=== PATIENT | female | born 1965 | race Caucasian/White ===

== ENCOUNTER → 2017-03-10 | Outpatient (CLI) | payer OTHER | END | disposition home or self-care (01) | LOC: LAB 17:41 | PROVIDERS: ATTEND Physician Assistant | DX: M85.89 Other specified disorders of bone density and structure, multiple sites (principal) ==

== ENCOUNTER → 2018-01-30 | Outpatient (CLI) | payer OTHER ==
--- NOTE | 2018-01-31 17:48 | MRI ---
EXAM DESCRIPTION: Ankle,Right: MRI. CLINICAL HISTORY: PARTIAL ACHILLES TENDON TEAR COMPARISON: None. TECHNIQUE: Multiplanar, high-field MRI, multiple sequences, without contrast: Right ankle. FINDINGS: Normal signal in the Achilles tendon. Minimal edema in the fascia anterior to the tendon and inferior to the musculotendinous junction. Normal marrow signal at the tendon insertion on the calcaneus. Normal signal in the flexor tendons and the tarsal tunnel with no soft tissue mass or fluid. Minimal edema in the subcutaneous adipose tissue outside the flexor retinaculum abutting the tendons. Normal signal in the peroneus tendons. Normal signal in the anterior extensor tendons. Minimal thickening of the plantar fascia at the origin from the proximal plantar calcaneus. Trace soft tissue edema inferior to the proximal fascia. Minimal effusion in the lateral gutter of the ankle mortise. The ankle mortise is congruent. No osteochondral lesions. No effusion in the subtalar joints and no osteochondral lesions. Medial and lateral stabilizing ligaments are intact. Sinus Tarsi ligaments are unremarkable. No abnormal marrow signal. IMPRESSION: 1. Normal signal in the Achilles tendon. Soft tissue edema in the fascia anterior to the musculotendinous junction. Normal signal in the calcaneal insertion of the tendon. 2. Minimal thickening of the plantar fascia at the origin and trace amount of edema underneath the fascia could indicate early plantar fasciitis. 3. Minimal effusion in the lateral gutter of the ankle mortise. No osteochondral lesions. Ligaments are intact. Normal signal in the remaining tendons. Electronically signed by: Elmer Rey MD 01/31/2018 5:47 PM JAVASCRIPT APPLICATION DEVELOPER Workstation: [id number]
== END ==
LOC: MRI 08:51
PROVIDERS: ATTEND Podiatrist Foot & Ankle Surgery
DX: S86.011A Strain of right Achilles tendon, initial encounter (principal)

== ENCOUNTER → 2018-02-07 | Outpatient (CLI) | payer OTHER | LOC: GMAJS 13:37 | PROVIDERS: ATTEND Physician Assistant | DX: N39.0 Urinary tract infection, site not specified (principal) ==

== ENCOUNTER → 2018-04-14 | Outpatient (CLI) | payer OTHER | LOC: GMAJ 17:17 | PROVIDERS: ATTEND Family Medicine | DX: Z00.00 Encounter for general adult medical examination without abnormal findings (principal) ==

== ENCOUNTER → 2018-05-21 | Outpatient (CLI) | payer OTHER ==
--- NOTE | 2018-05-21 16:59 | US ---
THYROID ULTRASOUND CLINICAL INFORMATION: R 22.1. Localized swelling, mass and lump, neck. TECHNIQUE: Routine transcutaneous scannin-D and Doppler modes. COMPARISON: No prior thyroid ultrasound. Patient also had digital screening bilateral mammography examination today. FINDINGS: Thyroid size: Right 3.3 x 1.3 x 1.3 cm. Left 3.4 x 1.7 x 1.3 cm. Isthmus 2.3 mm thickness. Texture: Heterogeneous Estimated total number of nodules >/=1 cm: 0 Number of spongiform nodules >/=2 cm not described below (TR1): 0 Number of mixed cystic and solid nodules >/=1.5 cm not described below (TR2): 0 Nodule #: 1 Maximum size: 0.7 cm; All dimensions 0.5 x 0.5 cm Location: right; upper Composition: solid/almost completely solid (2) Echogenicity: hypoechoic (2) Shape: not [id number] (0) Margins: smooth (0) Echogenic foci: none (0) ACR TI-RADS total points: 4. ACR TI-RADS risk category: TR4 (4-6 points) ACR TI-RADS recommendation: No further follow-up In the soft tissues adjacent to the thyroid, no distinct solid mass or cyst. No large calcifications or parenchymal edema. No abnormal vascularity. No overlying skin changes. IMPRESSION: 1. 7 mm solid nodule in the right lobe is ACR TI RADS risk category TR 4. Because largest diameter is less than 1 cm, no ultrasound follow-up is recommended. Please see below.* 2. Soft tissue surrounding the thyroid gland is unremarkable. *ACR TI-RADS recommendations: TR5 (>/=7 points) - FNA if >/=1 cm, follow-up if 0.5 - 0.9 cm every year for 5 years TR4 (4-6 points) - FNA if >/=1.5 cm, follow-up if 1 - 1.4 cm in 1, 2, 3 and 5 years TR3 (3 points) - FNA if >/=2.5 cm, follow -up if 1.5 - 2.4 cm in 1, 3 and 5 years TR2 (2 points) and TR1 (0 points) - No FNA or follow-up * ACR TI-RADS recommends that no more than two nodules with the highest ACR TI-RADS total point should be biopsied and no more than four nodules should be followed. Electronically signed by: Elmer Rey MD 05/21/2018 4:57 PM CDT
--- NOTE | 2018-05-25 14:58 | MAM ---
EXAM DESCRIPTION: 3D Screening BILATERAL : Digital Mammography. CLINICAL HISTORY: 52 years Female SCREENING . No complaints. Mother with ovarian cancer. No family history of breast cancer. Childbirth. Postmenopausal. No HRT. Zoroastrianism/Ashkenazi inheritance.. COMPARISON: Baseline study at this facility. No prior reports available. TECHNIQUE: Bilateral CC and MLO projection full-field images, 3-D tomosynthesis digital mammographic technique. CAD not utilized. FINDINGS: Bilateral breast parenchymal density pattern is: Heterogeneously dense breast tissue, which may obscure small masses. No skin thickening or nipple retraction. Bilateral solitary microcalcifications. Bilateral vascular calcifications. Focal asymmetry slightly more than 1 cm in diameter at the 900 clock position of the lateral right breast posterior third approximately 6.5 cm from the nipple. There may be a second area of focal asymmetry more medially, same distance from the nipple.. No focal, stellate mass or density, focal asymmetry , and no suspicious microcalcifications left breast. IMPRESSION: BI-RADS CATEGORY: 0 - INCOMPLETE- Need additional imaging evaluation. FOLLOW-UP: Recall for additional imaging: Bilateral 3-D tomosynthesis full field LM images. Full field 2-D exaggerated. CC MH. Targeted right breast ultrasound to follow if indicated by diagnostic images. Written communication concerning the IMPRESSION and Follow-up, will be mailed to the patient and referring health care provider. Electronically signed by: Elmer Rey MD 05/25/2018 2:57 PM CDT
== END ==
LOC: US 08:14
PROVIDERS: ATTEND Family Medicine
DX: Z12.31 Encounter for screening mammogram for malignant neoplasm of breast (principal); R22.1 Localized swelling, mass and lump, neck

== ENCOUNTER → 2018-06-01 | Outpatient (CLI) | payer OTHER ==
--- NOTE | 2018-06-01 12:29 | US ---
EXAM DESCRIPTION: Breast,Right: Ultrasound CLINICAL HISTORY: 52 yearsFemaleABNORMAL MAMMO. Focal asymmetry versus mass in the posterior right breast. COMPARISON: Digital diagnostic mammography right breast on the same date. 3-D digital bilateral screening mammography 05/21/2018. TECHNIQUE: Transcutaneous scanning of the right breast utilizing delarosa-scale and Doppler modes. Scanning performed by the grade setter and Dr. Rey. FINDINGS: Scanning at the 1000 clock position 5 cm from the nipple. Anterior layer of fatty echotexture with a more posterior layer of fibroglandular tissues. Hypoechoic versus anechoic oval-shaped mass with well marginated macdonald within this fibroglandular layer. Parallel orientation and posterior acoustic enhancement features. Dimensions are 10.6 x 9.7 x 4.2 mm. Multiple nearby cysts. No adjacent distinct solid mass. No large calcifications or parenchymal edema. No overlying skin changes. No abnormal vascularity. IMPRESSION: BI-RADS CATEGORY: 3 - PROBABLY BENIGN. Management: Short interval (6-month) digital mammography and continued surveillance ultrasound. The FINDINGS and the FOLLOW-UP plan were reviewed in person with the patient after the examination. Written communication explaining the IMPRESSION and FOLLOW-UP will be mailed to the patient and referring care provider. Electronically signed by: Elmer Rey MD 06/01/2018 12:28 PM CDT
--- NOTE | 2018-06-01 12:39 | MAM ---
EXAM DESCRIPTION: Diagnostic Mammo,Right: Digital Mammography CLINICAL HISTORY: 52 yearsFemaleABNORMAL MAMMOGRAM . Focal asymmetry versus mass posterior third right breast at the 900 clock position.. COMPARISON: Right breast targeted ultrasound following this examination. 3-D digital screening bilateral mammography 05/21/2018 Report from prior examination also reviewed. TECHNIQUE: Right LM projection full-field images, 3-D tomosynthesis digital mammographic technique. Right exaggerated lateral CC image. CAD not utilized. FINDINGS: The breast parenchymal density pattern is: Heterogeneously dense breast tissue, which may obscure small masses. No skin thickening or nipple retraction again noted is a partially well-defined mass versus focal asymmetry surrounded by dense fibroglandular tissues and is the same density as these tissues. 900 clock position, 6 cm from the nipple. Not associated with microcalcifications. Ultrasound: Scanning at the 1000 clock position 5 cm from the nipple. Anterior layer of fatty echotexture with a more posterior layer of fibroglandular tissues. Hypoechoic versus anechoic oval-shaped mass with well marginated macdonald within this fibroglandular layer. Parallel orientation and posterior acoustic enhancement features. Dimensions are 10.6 x 9.7 x 4.2 mm. Multiple nearby cysts. No adjacent distinct solid mass. No large calcifications or parenchymal edema. No overlying skin changes. No abnormal vascularity. IMPRESSION: BI-RADS CATEGORY: 3 - PROBABLY BENIGN. Management: Short interval (6-month) follow-up digital diagnostic mammography right breast with repeat targeted right breast ultrasound. The FINDINGS and the follow-up plan were reviewed in person with the patient after the examination. Written communication explaining the IMPRESSION and follow-up will be mailed to the patient and referring care provider. Electronically signed by: Elmer Rey MD 06/01/2018 12:38 PM CDT
== END ==
LOC: MAMMO 08:03
PROVIDERS: ATTEND Family Medicine
DX: R92.8 Other abnormal and inconclusive findings on diagnostic imaging of breast (principal)

== ENCOUNTER → 2018-08-11 | Outpatient (CLI) | payer OTHER | LOC: GMAJ 15:06 | PROVIDERS: ATTEND Family Medicine | DX: N30.00 Acute cystitis without hematuria (principal) ==

== ENCOUNTER → 2018-08-26 | Outpatient (CLI) | payer OTHER ==
--- NOTE | 2018-08-26 10:55 | CT ---
EXAM DESCRIPTION: Abdoment/Pelvis w/o Contrast CLINICAL HISTORY: ASYMPTOMATIC MICROSCOPIC HEMATURIA COMPARISON: None Available TECHNIQUE: CT of the abdomen and Pelvis was performed without IV contrast. This exam was performed according to our departmental dose-optimization program, which includes automated exposure control, adjustment of the mA and/or kV according to patient size and/or use of iterative reconstruction technique. FINDINGS: No left or right-sided urinary tract calculus, hydronephrosis or perinephric inflammation. No bladder wall thickening or bladder calcification. No lung base abnormality. No pneumoperitoneum, adenopathy or ascites. No lung base abnormality. No calcified gallstone. The liver, spleen, pancreas and adrenals are unremarkable. No dilated small bowel loops or mesenteric inflammation. No colonic wall thickening or pericolonic inflammation. The uterus and ovaries are unremarkable for patient's age. A 2.3 cm left ovarian cyst is likely physiologic and requires no further follow-up. No concerning bone lesion. IMPRESSION: No urinary tract calculus, bladder wall thickening or additional abnormality to explain patient's symptoms. Electronically signed by: Tai Barnes MD 08/26/2018 10:54 AM CDT
== END ==
LOC: CT 08:09
PROVIDERS: ATTEND Family Medicine
DX: R31.21 Asymptomatic microscopic hematuria (principal)

== ENCOUNTER → 2018-09-02 | Outpatient (CLI) | payer OTHER | LOC: LAB.O 14:12 | PROVIDERS: ATTEND Urology | DX: R31.0 Gross hematuria (principal) ==

== ENCOUNTER → 2018-11-17 | Outpatient (CLI) | payer OTHER ==
--- NOTE | 2018-11-17 14:42 | US ---
EXAM DESCRIPTION: Breast,Right: Ultrasound CLINICAL HISTORY: 53 yearsFemaleABN MAMMO COMPARISON: Digital targeted right breast ultrasound 06/01/2018. Digital diagnostic tomosynthesis right breast 06/01/2018. TECHNIQUE: Transcutaneous scanning of the right breast utilizing delarosa-scale and Doppler modes. Scanning performed by the cable lacer. Dr. Rey reviewed images remotely, before the patient left the department. FINDINGS: Scanning in the upper outer quadrant of the right breast. Heterogeneous mixture of fibroglandular and fatty tissues. Scanned focused at the 10:00 position 4 cm from the nipple. Hypoechoic mass with circumscribed and lobulated margins measuring 10.0 x 5.4 x 9.0 mm. Parallel/wider than tall orientation. Predominantly posterior enhancement features. No significant vascularity. Possibly a complicated cyst or fibroadenoma. Stable since the prior study. No associated distinct simple cyst. No parenchymal edema or large calcifications. No overlying skin changes or abnormal vascularity. IMPRESSION: BI-RADS CATEGORY: 3 - PROBABLY BENIGN. Management: Short interval (6-month) follow-up right breast ultrasound and continued yearly surveillance digital mammography bilateral, on or before May 2019.. The FINDINGS and the FOLLOW-UP plan were reviewed in person with the patient after the examination. Written communication explaining the IMPRESSION and FOLLOW-UP will be mailed to the patient and referring care provider. Electronically signed by: Elmer Rey MD 11/17/2018 2:41 PM SPECIAL EDUCATION SCIENCE TEACHER
== END ==
LOC: US 10:00
PROVIDERS: ATTEND Family Medicine
DX: R92.8 Other abnormal and inconclusive findings on diagnostic imaging of breast (principal)

== ENCOUNTER 2018-11-18 04:08 | Emergency (ER) | payer OTHER ==
--- NOTE | 2018-11-18 04:50 | RAD ---
Chest 2 view on 11/18/2018 CLINICAL INDICATION: Cough COMPARISON: 09/17/2016 FINDINGS: The lungs are clear. Cardiac, hilar and mediastinal contours are within normal limits. Pulmonary vascularity is within normal limits. No bony abnormality is noted. IMPRESSION: No active disease. Electronically signed by: Corbin Martinez 11/18/2018 4:49 AM CROTCH BREAKER
[2018-11-18] MEDS ORDERED: DEXAMETHASONE INJ 10 MG/ML VIAL PO ONE (05:38)
--- NOTE | 2018-11-18 05:41 | ED.PDOC ---
History of Present Illness - General Chief Complaint: Respiratory Problem Stated Complaint: cough, short of breath Time Seen by Provider: 11/18/18 04:14 Source: patient, Vital Signs reviewed Exam Limitations: no limitations - History of Present Illness Comments: c/o nonproductive cough similar to previous episode of "walking pneumonia" Timing/Duration: other - 2 days ago Cough Quality/Degree: moderate, dry cough, other - "croupy" Possible Cause: occasional episodes Improving Factors: nothing Worsening Factors: nothing Associated Symptoms: cough, nasal congestion, shortness of breath, sore throat Respiratory Risk Factors: exposure to allergen - just got back from [facility]" Allergies/Adverse Reactions: Allergies Diphenhydramine [From Benadryl] Adverse Reaction (Intermediate, Verified 09/17/16 23:29) Other Makes pt "crazy" Home Medications: Ambulatory Orders Ondansetron [Zofran Odt] 4 mg PO Q6H #20 tab 04/20/15 Tramadol HCl [Ultram] 50 mg PO Q6H #30 tab 04/20/15 Review of Systems - Review of Systems Constitutional: States: see HPI EENTM: States: see HPI Respiratory: States: see HPI Cardiology: States: no symptoms reported. Denies: chest pain Gastrointestinal/Abdominal: States: no symptoms reported Musculoskeletal: States: no symptoms reported Skin: States: no symptoms reported Neurological: States: no symptoms reported Past Medical History (General) - Patient Medical History Hx Stroke: No Hx Cardiac Disorders: Yes - Cardiac ablation 2001 for SVT Hx Congestive Heart Failure: No Hx Hypertension: Yes Hx Diabetes: No Hx Cancer: Yes - skin Hx MRSA: No Surgical History: Hysterectomy - Vaccination History Hx Influenza Vaccination: No Hx Pneumococcal Vaccination: No - Social History Hx Tobacco Use: No Hx Alcohol Use: No - Female History Patient : No Family Medical History - Family History Mother Living Status: Still Living Hx Family Stroke: - TIA Hx Cardiac Disease: Yes - hypercholesterolemia; CABG Hx Family Cancer: Yes - Ovarian Hx Family;Other: Thyroid disorder Physical Exam - Physical Exam General Appearance: Alert, Comfortable, No apparent distress ENT Exam: pharyngeal erythema, muffled/hoarse voice, other - cough perhaps does sound mildly like croup Neck: full range of motion, supple, normal inspection Respiratory: normal breath sounds, no respiratory distress, no accessory muscle use Cardiovascular/Chest: regular rate, rhythm, no gallop, no JVD, no murmur, other - edema is her chronic state she says - unchanged Extremity: normal inspection, normal capillary refill Neurologic: alert, normal mood/affect, oriented x 3 Skin Exam: normal color, warm/dry Progress - Progress Progress: 11/18/18 05:42 Unchanged - Results/Orders Results/Orders: strep negative - EKG/XRAY/CT XRAY: chest - nml Departure - Departure Clinical Impression: Laryngitis, Viral illness Pharyngitis Qualifiers: Pharyngitis/tonsillitis etiology: unspecified etiology Qualified Code(s): J02.9 - Acute pharyngitis, unspecified Time of Disposition: 05:44 Disposition: Discharge to Home or Self Care Condition: Good Departure Forms: ED Discharge - Pt. Copy, Patient Portal Self Enrollment Instructions: Laryngitis (DC), Viral Upper Respiratory Infection, Adult (DC) Referrals: Valdez Arenas MD [Primary Care Provider] - 11/23/18 Home Medications: Ambulatory Orders Ondansetron [Zofran Odt] 4 mg PO Q6H #20 tab 04/20/15 Tramadol HCl [Ultram] 50 mg PO Q6H #30 tab 04/20/15
[2018-11-18 05:54] VITALS: O2SAT 97
[2018-11-18 05:57] VITALS: BP 140/80; TEMP 97.1
== END 2018-11-18 05:57 | disposition home or self-care (01) ==
LOC: ER 04:08
DX: J02.9 Acute pharyngitis, unspecified (principal); J04.0 Acute laryngitis; I10 Essential (primary) hypertension; Z88.8 Allergy status to other drugs, medicaments and biological substances; Z85.828 Personal history of other malignant neoplasm of skin
CPT/HCPCS: 71046; 87070; 87880; J1100

== ENCOUNTER → 2019-01-07 | Outpatient (CLI) | payer OTHER | LOC: LAB.O 10:16 | PROVIDERS: ATTEND Obstetrics & Gynecology | DX: Z01.419 Encounter for gynecological examination (general) (routine) without abnormal findings (principal); E34.9 Endocrine disorder, unspecified ==

== ENCOUNTER → 2019-07-14 | Outpatient (CLI) | payer OTHER ==
--- NOTE | 2019-07-14 17:16 | MAM ---
EXAM DESCRIPTION: Breast,Right (accession [id number]), ultrasound. Diagnostic Mammo, 3-D Bilateral (accession [id number]): CLINICAL HISTORY: 54 yearsFemaleSIX MONTH FOLLOW UP follow-up mass density right breast. COMPARISON: Other TECHNIQUE: Bilateral CC and MLO projection full-field images, digital mammographic tomosynthesis technique. Bilateral 2-D digital full-field images. MLO only. CAD not available . Transcutaneous scanning of the right breast utilizing delarosa-scale and Doppler modes. Scanning performed by the repair supervisor and Dr. Rey. FINDINGS: The breast parenchymal density pattern is: Extremely dense breast tissue, which lowers the sensitivity of mammography. No skin thickening or nipple retraction stable mass density 11:30 position 5.7 cm from the nipple. Focal asymmetry versus mass density slightly more posterior and medial 12:30 to 1:00 position 5.9 cm from the nipple. No new suspicious microcalcifications bilaterally. No new focal mass density or focal asymmetry left breast. Ultrasound: Scanning of the right breast at the 10:00 position, 5 cm from the nipple. Again seen 9.6, mid or hypoechoic thin-walled solid mass versus complicated cyst with wider than tall orientation, circumscribed margin, posterior acoustic enhancement, and nonvascular. Stable since the prior study. Scanning at the 1:00 position, 6 cm from the nipple. Small 2.5 mm circumscribed cyst with parallel orientation and nonvascular and posterior acoustic enhancement. IMPRESSION: BI-RADS CATEGORY: 3 - PROBABLY BENIGN. Management: Short interval (6-month) right breast diagnostic digital tomosynthesis and targeted right breast ultrasound.. The FINDINGS and the FOLLOW-UP plan were reviewed in person with the patient after the examination. Written communication explaining the IMPRESSION and FOLLOW-UP will be mailed to the patient and referring care provider. Electronically signed by: Elmer Rey MD 07/14/2019 5:14 PM CDT
== END ==
LOC: US 08:20
PROVIDERS: ATTEND Family Medicine
DX: R92.8 Other abnormal and inconclusive findings on diagnostic imaging of breast (principal)

== ENCOUNTER → 2019-08-10 | Outpatient (CLI) | payer OTHER ==
--- NOTE | 2019-08-11 09:18 | US ---
EXAM DESCRIPTION: Cyst Aspiration: Ultrasound. CLINICAL HISTORY: 54 years Female RIGHT BREAST MASS. BI-RADS 3 right breast ultrasound and diagnostic digital mammography 07/14/2019. COMPARISON: Diagnostic ultrasound of the right breast on 07/14/2019. TECHNIQUE: The procedure was performed by Dr. Loaiza. Repeat ultrasound localized the lesion at the 10:00 position of the right breast 5 cm from the nipple.. Sterile preparation. Sterile ultrasound guidance during needle passes. FINDINGS: Hypoechoic or anechoic structure again visualized. 10 x 7 x 3 mm. Ultrasound-guided images during the procedure. Minimal amount of fluid was aspirated. IMPRESSION: Successful, ultrasound-guided right breast cyst aspiration Pathology examination at remote facility, results pending. Electronically signed by: Elmer Rey MD 08/11/2019 9:17 AM CDT
--- NOTE | 2019-08-11 20:37 | OP ---
DATE OF PROCEDURE: PROCEDURE: Ultrasound guided aspiration of breast cyst. INDICATION OF PROCEDURE: A 54 year-old woman with a recent ultrasound that showed a mass versus a cystic lesion on her right breast relatively unchanged before, but given the uncertain nature of the mass or cyst, I recommended an ultrasound guided biopsy. Upon ultrasound, the lesion was relatively deep in the right breast and found to be fluid with a possible mass posterior on my view, so we decided to aspirate first and see what was left. The skin was numbed as well as the tract and then under direct visualization with the ultrasound the cyst was aspirated. The fluid was sent for cytology. The remainder was about 9 x 1 mm, very tiny. I could not get the entire cyst but the remainder was relatively insignificant. At that point there did not appear to be any portion of it that was mass-like, so we concluded there with the aspiration and will followup with her on the results. #[id number] [facility]
== END ==
LOC: US 08:15
PROVIDERS: ATTEND Surgery
DX: N63.10 Unspecified lump in the right breast, unspecified quadrant (principal)

== ENCOUNTER 2020-07-31 04:04 | Emergency (ER) | payer SELFPAY ==
--- NOTE | 2020-07-31 04:28 | ED.PDOC ---
History of Present Illness - General Chief Complaint: Respiratory Problem Stated Complaint: SOB intermitten for 2 weeks Time Seen by Provider: 07/31/20 04:19 Source: patient Exam Limitations: no limitations - History of Present Illness Initial Comments: The patient is a 55-year-old female presents emergency room secondary to feelings of intermittent shortness of breath at night, primarily when she lies back. This is been going on for 3 to 4 weeks. For a slightly longer period of time the patient has had increased reflux at night. She has started taking some omeprazole. No history of asthma. No chest pain. No palpitations. No other significant infections. About a week into symptoms she had a coronavirus test that was negative. No productive cough. No real daytime shortness of breath. Vital signs are within normal limits here, no hypoxia and lung patel are clear. Timing/Duration: unsure Severity: mild Improving Factors: nothing Worsening Factors: nothing Associated Symptoms: shortness of breath Allergies/Adverse Reactions: Allergies Diphenhydramine [From Benadryl] Adverse Reaction (Intermediate, Verified 09/17/16 23:29) Other Makes pt "crazy" Home Medications: Ambulatory Orders Ondansetron [Zofran Odt] 4 mg PO Q6H #20 tab 04/20/15 Tramadol HCl [Ultram] 50 mg PO Q6H #30 tab 04/20/15 Albuterol Inhaler [Ventolin Hfa Inhaler] 2 puff INH Q4H PRN #1 inh 07/31/20 Sucralfate Tab [Carafate Tab] 1 gm PO QID #120 tab 07/31/20 Review of Systems - Review of Systems Constitutional: States: no symptoms reported EENTM: States: no symptoms reported Respiratory: States: short of breath - At night mostly when lying back Cardiology: States: no symptoms reported Gastrointestinal/Abdominal: States: other - Increased reflux Genitourinary: States: no symptoms reported Musculoskeletal: States: no symptoms reported Skin: States: no symptoms reported Neurological: States: anxiety Endocrine: States: no symptoms reported All other Systems: No Change from Baseline Past Medical History (General) - Patient Medical History Hx Stroke: No Hx Cardiac Disorders: Yes - Cardiac ablation 2001 for SVT Hx Congestive Heart Failure: No Hx Hypertension: Yes Hx Diabetes: No Hx Cancer: Yes - skin Hx MRSA: No Surgical History: Hysterectomy, other - Vaccination History Hx Influenza Vaccination: No Hx Pneumococcal Vaccination: No - Social History Hx Tobacco Use: No Hx Alcohol Use: No - Female History Patient : No Family Medical History - Family History Mother Living Status: Still Living Hx Family Stroke: - TIA Hx Cardiac Disease: Yes - hypercholesterolemia; CABG Hx Family Cancer: Yes - Ovarian Hx Family;Other: Thyroid disorder Physical Exam - Physical Exam General Appearance: Alert, Anxious, No apparent distress Eye Exam: bilateral normal Ears, Nose, Throat: hearing grossly normal, normal pharynx Neck: full range of motion, supple Respiratory: lungs clear, normal breath sounds, no respiratory distress, no accessory muscle use Cardiovascular/Chest: normal peripheral pulses, regular rate, rhythm, no edema Peripheral Pulses: radial,right: 2+, radial,left: 2+ Gastrointestinal/Abdominal: non tender - Obese, soft Rectal Exam: deferred Back Exam: no CVA tenderness, no vertebral tenderness Extremity: normal range of motion, non-tender, normal inspection, no pedal edema, normal capillary refill 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 I believe the most likely source for this is increased reflux at night for the patient causing microaspiration of acidic material and airway irritation, with possible bronchospasm. The patient will be written for a trial of an albuterol inhaler to be used at night. For the reflux, the patient can continue the omeprazole and she will be written for Carafate for the next month. Long-term the patient needs to work on weight loss to help reduce reflux. Additionally elevating the head of the bed 4 to 6 inches may help and avoiding meals within a couple of hours before bed may also help. er warnings given. savage falk [id number] - Results/Orders Results/Orders: Chest x-ray shows very mild cardiomegaly. EKG shows normal sinus rhythm. No evidence of any ST elevation. Normal QT interval. No evidence of overt acute pathology. Laboratory Tests 07/31/20 07/31/20 07/31/20 04:35 05:25 05:25 WBC 6.9 RBC 3.98 L Hgb 11.8 L Hct 34.5 L MCV 86.7 MCH 29.7 MCHC 34.3 RDW 13.5 Plt Count 211 MPV 9.2 Absolute Neuts (auto) 4.50 Absolute Lymphs (auto) 1.70 Absolute Monos (auto) 0.50 Absolute Eos (auto) 0.10 Absolute Basos (auto) 0.10 Neutrophils % 65.1 Lymphocytes % 25.4 Monocytes % 7.5 Eosinophils % 1.3 Basophils % 0.7 D-Dimer, Quantitative Sodium 137 Potassium 3.3 L Chloride 104 Carbon Dioxide 24 Anion Gap 12.3 BUN 16 Creatinine 0.63 BUN/Creatinine Ratio 25.4 H Random Glucose 96 Serum Osmolality 274.9 L Calcium 8.1 L Magnesium 2.1 Total Bilirubin 0.4 AST 16 ALT 15 Alkaline Phosphatase 99 Creatine Kinase 37 CK-MB (CK-2) 1.2 CK-MB (CK-2) % Not Reportable Troponin I < 0.02 B-Natriuretic Peptide 32.9 Serum Total Protein 6.5 Albumin 3.5 Globulin 3.0 Albumin/Globulin Ratio 1.2 TSH 3.09 Serum HCG, Qual Urine Color Yellow Urine Appearance Clear Urine pH 6.0 Ur Specific Mittie 1.025 Urine Protein Negative Urine Glucose (UA) Negative Urine Ketones Negative Urine Blood Moderate H Urine Nitrite Positive H Urine Bilirubin Negative Urine Urobilinogen 0.2 Ur Leukocyte Esterase Trace H Urine RBC 5-10 H Urine WBC 1-3 Ur Epithelial Cells 5-10 Urine Bacteria 2+ H Urine Mucus Trace 07/31/20 07/31/20 05:25 05:25 WBC RBC Hgb Hct MCV MCH MCHC RDW Plt Count MPV Absolute Neuts (auto) Absolute Lymphs (auto) Absolute Monos (auto) Absolute Eos (auto) Absolute Basos (auto) Neutrophils % Lymphocytes % Monocytes % Eosinophils % Basophils % D-Dimer, Quantitative 297.0 Sodium Potassium Chloride Carbon Dioxide Anion Gap BUN Creatinine BUN/Creatinine Ratio Random Glucose Serum Osmolality Calcium Magnesium Total Bilirubin AST ALT Alkaline Phosphatase Creatine Kinase CK-MB (CK-2) CK-MB (CK-2) % Troponin I B-Natriuretic Peptide Serum Total Protein Albumin Globulin Albumin/Globulin Ratio TSH Serum HCG, Qual Negative Urine Color Urine Appearance Urine pH Ur Specific Mittie Urine Protein Urine Glucose (UA) Urine Ketones Urine Blood Urine Nitrite Urine Bilirubin Urine Urobilinogen Ur Leukocyte Esterase Urine RBC Urine WBC Ur Epithelial Cells Urine Bacteria Urine Mucus Departure - Departure Clinical Impression: GERD with esophagitis, Hypokalemia Disposition: Discharge to Home or Self Care Condition: Fair Departure Forms: ED Discharge - Pt. Copy, Patient Portal Self Enrollment Diet: bland diet Activity: increase activity as tolerated Referrals: Valdez Arenas MD [Primary Care Provider] - 1-2 Weeks Prescriptions: Sucralfate Tab [Carafate Tab] 1 gm PO QID #120 tab Albuterol Inhaler [Ventolin Hfa Inhaler] 2 puff INH Q4H PRN #1 inh PRN Reason: Shortness Of Breath Home Medications: Ambulatory Orders Ondansetron [Zofran Odt] 4 mg PO Q6H #20 tab 04/20/15 Tramadol HCl [Ultram] 50 mg PO Q6H #30 tab 04/20/15 Albuterol Inhaler [Ventolin Hfa Inhaler] 2 puff INH Q4H PRN #1 inh 07/31/20 Sucralfate Tab [Carafate Tab] 1 gm PO QID #120 tab 07/31/20 Additional Instructions: The patient is a 55-year-old female presented emergency room secondary to intermittent shortness of breath at night. I believe the most likely source for this is increased reflux at night for the patient causing microaspiration of acidic material and airway irritation, with possible bronchospasm. The patient will be written for a trial of an albuterol inhaler to be used at night. For the reflux, the patient can continue the omeprazole and she will be written for Carafate for the next month. Long-term the patient needs to work on weight loss to help reduce reflux. Additionally elevating the head of the bed 4 to 6 inches may help and avoiding meals within a couple of hours before bed may also help. The patient also had mild hypokalemia and was dose of potassium here. This can be followed with her primary care doctor. Er warnings given.
[2020-07-31] MEDS ORDERED: SUCRALFATE 1 GM/10 ML 1 GM UD PO ONE (04:29)
--- NOTE | 2020-07-31 05:12 | RAD ---
EXAM: XR Chest, 2 Views CLINICAL HISTORY: The patient is 55 years old and is Female; sob 3 weeks intermittent TECHNIQUE: Two views of the chest. COMPARISON: November 18, 2018. FINDINGS: Lungs: No pulmonary vascular congestion or consolidation. Pleural space: Unremarkable. No pneumothorax. Heart: Mild cardiomegaly. Mediastinum: Unremarkable. Bones/joints: No acute fracture visualized. Upper abdomen: No free air in the visualized upper abdomen. IMPRESSION: 1. No acute cardiopulmonary process identified. 2. Mild cardiomegaly. Electronically signed by: Khushboo Lambert MD 07/31/2020 5:11 AM CDT
[2020-07-31] MEDS ORDERED: POTASSIUM CHLORIDE ELIXIR 20 MEQ/15 ML UD PO ONE (06:23)
[2020-07-31 06:47] VITALS: BP 140/75; TEMP 97.7; O2SAT 99
== END 2020-07-31 06:47 | disposition home or self-care (01) ==
LOC: ER 04:04
DX: K21.0 Gastro-esophageal reflux disease with esophagitis (principal); E87.6 Hypokalemia; R06.02 Shortness of breath; I10 Essential (primary) hypertension; Z79.899 Other long term (current) drug therapy; Z88.8 Allergy status to other drugs, medicaments and biological substances; Z85.828 Personal history of other malignant neoplasm of skin